=== PATIENT | male | born 1940 | race Caucasian/White ===

== ENCOUNTER → 2024-02-25 | Outpatient (CLI) | payer MEDICARE, OTHER ==
--- NOTE | 2024-02-26 12:21 | MR ---
EXAMINATION TYPE: MR Prostate wo/w con DATE OF EXAM: 02/25/2024 10:34 AM COMPARISON: None. CLINICAL INDICATION:Male, 83 years old with history of R97.20 ELEVATED PSA; Elevated PSA. TECHNIQUE: Multi-planar, multi-sequence imaging of the pelvis is performed prior to and following the uncomplicated administration of bolus intravenous gadolinium. CONTRAST: 8.5 Gadavist Interpretive Criteria: PI-RADS v2.1 SERUM PSA: 6.0 on 12/10/2023. SURGICAL PATHOLOGY: No data available. FINDINGS: Prostatic dimensions: 6.4 x 7.4 x 5.9 cm. Ellipsoid Volume:146.31 (PSA density=0.04 ng/mL/mL) CENTRAL GLAND (Central and Transition Zones/CZ+TZ): Multiple bilateral, heterogenous appearing hypertrophic stromal nodules, without suspicious lesion. M edian lobe hypertrophy with protrusion into the base of the bladder. (PI-RADS 2) PERIPHERAL ZONE (PZ): Atrophy of the peripheral zone secondary to central gland hypertrophy. No evidence of masslike abnorm ality, or localized perfusional hypervascularity, to further suggest a focus of clinically significan t prostate cancer. (PI-RADS 2) SEMINAL VESICLES (SV): Symmetric and unremarkable. PERIPROSTATIC TISSUES: Unremarkable. LYMPH NODES: No enlarged pelvic lymph node. REMAINING PELVIS: Bladder wall is within normal limits given distention. No abnormal free or organized intrapelvic fluid collection. No pathologic bowel dilation or mural thickening. Colonic diverticula are present. No hernia visualized Left gluteus kilo intramuscular lipoma measuring up to 57 x 29 mm OSSEOUS STRUCTURES: No suspicious osseous abnormality. IMPRESSION: 1. No specific features for high-risk prostate cancer. Maximum PI-RADS score: 2. 2. Substantial BPH, estimated gland volume 146.31 mL. 3. No suspicious osseous lesion. No lymphadenopathy. No evidence of prostate adenocarcinoma involving the periprostatic tissues. 4. Left gluteus kilo intramuscular lipoma measuring up to 57 x 29 mm
== END | disposition home or self-care (01) ==
LOC: RADMRIMAIN 01-30 17:58
PROVIDERS: ATTEND Urology
DX: N40.0 Benign prostatic hyperplasia without lower urinary tract symptoms (principal); D17.24 Benign lipomatous neoplasm of skin and subcutaneous tissue of left leg; R97.20 Elevated prostate specific antigen [PSA]
CPT/HCPCS: 72197; A9585

== ENCOUNTER 2025-01-01 10:11 | Day surgery (SDC) | payer MEDICARE, OTHER, BC ==
[~2025-01-01 10:11] MED LIST: ALPRAZolam 0.25 MG TAB PO PRN; ALPRAZolam 0.5 MG TAB PO PRN; MIDAZOLAM 2 MG/2 ML VIAL IV PRN; NITROGLYCERIN SL TABS 0.4 MG TAB SUBLINGUAL PRN
[2025-01-01] MEDS: ASPIRIN 325 MG TAB PO STA (11:25)
[2025-01-01 11:26] LABS: Glucose,Whole Blood 105 mg/dL (70-110)
[2025-01-01] MEDS: IV FLUID CONTINUATION 1,000 ML IV ONE ×2 (11:26→16:18)
[2025-01-01] MEDS: fentaNYL (PF) 50 MCG/ML 2 ML AMP IVP ONE (12:30)
[2025-01-01] MEDS: MIDAZOLAM 2 MG/2 ML VIAL IVP ONE (12:30)
[2025-01-01] MEDS: LIDOCAINE 1% INJ 10MG/ML (20 ML MDV) SQ ONE (13:00)
[2025-01-01] MEDS: HEPARIN SODIUM,PORCINE (1 ML) 2,500 UNIT in SODIUM CHLORIDE 0.9% 250 ML IRRIGATION PRN (13:02)
[2025-01-01] MEDS: HEPARIN SODIUM,PORCINE 10,000 UNIT in SODIUM CHLORIDE 0.9% 1,000 ML IRRIGATION PRN (13:02)
[2025-01-01] MEDS: VERAPAMIL SYRINGE (5 MG/10 ML) INTRAARTER ONE (13:03)
[2025-01-01] MEDS: fentaNYL (PF) 50 MCG/ML 5 ML AMP IVP PRN (13:05)
[2025-01-01] MEDS: HEPARIN SODIUM 1,000 UN/ML (10ML VL) IVP ONE (13:14)
[2025-01-01] MEDS: IOPAMIDOL-370 100ML BTL INJ ONE ×2 (13:29→13:51)
[2025-01-01] MEDS: TICAGRELOR 90 MG TAB PO ONE (13:38)
[2025-01-01] MEDS ORDERED: NITROGLYCERIN SL TABS 0.4 MG TAB SUBLINGUAL PRN (14:03)
[2025-01-01] MEDS ORDERED: RX INFO: IV CONTRAST WAS GIVEN 1 EACH MISC MISCELLANE PRN (14:03)
[2025-01-01] MEDS ORDERED: ATROPINE SULFATE 0.1 MG/ML 10ML SYRINGE IV PRN (14:03)
[2025-01-01] MEDS ORDERED: ZOLPIDEM 5 MG TAB PO PRN (14:03)
[2025-01-01] MEDS ORDERED: MAG HYDROX/AL HYDROX/SIMETH 30 ML CUP PO PRN (14:03)
--- NOTE | 2025-01-01 14:05 | P.PCN ---
Date of Procedure: 01/01/25 Operative Findings: TRANSESOPHAGEAL ECHOCARDIOGRAM APPLICATIONS SALES REPRESENTATIVE: BIANKA CHRISTINE MD, RPVI INDICATION: Aortic stenosis SEDATION: Conscious sedation COMPLICATION: None LEVEL OF SEDATION Moderate with sedation length of 20 minutes PROCEDURE DESCRIPTION: After obtaining an informed consent, the patient was brought to transesophageal echocardiogram room. Pulse oximetry and heart monitors were attached to the patient. The patient throat was sprayed using lidocaine. The patient was turned into left lateral position. After that a bite guard was placed. After an appropriate conscious sedation was initiated, the transesophageal echocardiogram was advanced through a bite guard into the mid esophagus. A 2-D echocardiogram images, color Doppler images, continuous wave images, pulse-wave images, of various cardiac structure were performed. After that the transesophageal echocardiogram probe was advanced into the stomach and fixed to obtain transgastric view was. The probe was brought into the mid esophagus. Inter-atrial septum was interrogated using 2D images, color Doppler images, and then contrast study. After that transesophageal echocardiogram was withdrawn out and upon withdrawing the descending thoracic aorta all the way up to the arch was evaluated. CONCLUSION: 1. Normal biventricular systolic function 2. Aortic sclerosis with severe stenosis and mean gradient of 59 mmHg and peak systolic velocity exceeding 4 m/s 3. Mild to moderate mitral regurgitation 4. No pericardial effusion 5. Intact left atrial appendage 6. Intact interatrial septum
--- NOTE | 2025-01-01 14:11 | P.PCN ---
Date of Procedure: 01/01/25 Operative Findings: CARDIAC CATHETERIZATION AND PERCUTANEOUS CORONARY INTERVENTION PERFORMING PHYSICIAN: Deon Guerra MD, [facility] PROCEDURE PERFORMED: 1. Selective right and left coronary angiogram and left heart catheterization and right heart catheterization 2. Successful stenting of proximal LAD using 3.5 x 23 mm Xience PAULA with an excellent angiographic results 3. Adjunctive use of IVUS and IFR 4. Ultrasound-guided access of the right radial artery and ultrasound-guided access of the right common femoral vein INDICATION: Aortic stenosis COMPLICATION: None APPROACH: Right radial artery and right common femoral vein LEVEL OF SEDATION: Moderate with the sedation time off 67 minutes PROCEDURE DESCRIPTION: After obtaining informed consent the patient was brought to the cardiac [facility] with right radial artery was cannulated using micropuncture technique under ultrasound guidance a micropuncture wire passed easily and every 6 Irish 11 cm sheath at the right radial artery and give the patient 2 mg of verapamil intra- arterial and 5000's of heparin intravenous. But before that the right common femoral vein was cannulated using micropuncture technique under ultrasound guidance a micropuncture wire passed easily and placed a 6 Irish 11 cm sheath at the right common femoral vein. Right heart catheterization was performed using [place] catheter. Selective right and left coronary angiogram performed using JR4 and JL 3.5 catheter and left heart catheterization was performed using JR4 with a straight wire. The procedure was completed with no complication. After that I decided to do an IFR of the LAD with after zeroing the Dobler wire and equalizing between the Dobler and guiding catheter the left main was engaged and subsequently the IFR wire was advanced to the LAD with IFR came in at 0.74. Also I did an IFR of the left main which came to be at 0.89. I did IVUS of the LAD which showed a diameter around 3 to 3.5 mm. I predilated the LAD using 3 mm NC balloon before I deployed 3.5 x 23 mm stent which was postdilated using 4 mm NC balloon with final angiogram showing excellent angiographic results and the procedure was completed with no complication SELECTIVE CORONARY ANGIOGRAM: The right coronary artery: Large caliber vessel and a dominant vessel with no evidence of high-grade stenosis with only mild to moderate disease Left main: Has mild disease only The left circumflex: Large-caliber vessel nondominant vessel with no evidence of high-grade stenosis The left anterior descending artery: Has intermediate disease involving the proximal portion documented to be flow- limiting by Doppler wire. HEMODYNAMICS: The LVEDP was 15 mmHg Pulmonary capillary wedge pressure was 15 mmHg PA pressures were as follows systolic 56 and diastolic of 22 and mean of 35 mmHg RV pressures were as follows systolic of 62 and end-diastolic of 8 mmHg RA pressure was 6 mmHg Cardiac output was 4.15 L/min with a cardiac index of 2.04 L/min/m The aortic valve area was 0.43 cm and mean gradient was 65 mmHg CONCLUSION: 1. Severe disease involving the proximal LAD with I did perform PCI of the LAD as described above 2. Severe aortic stenosis by gradient as well as by area POSTPROCEDURE MANAGEMENT: 1. Dual antiplatelet therapy using aspirin and Brilinta for 6-12 month 2. Aggressive cholesterol control 3. Follow-up with the patient
[2025-01-01] MEDS: ATORVASTATIN 80 MG TAB PO STA (17:24)
[2025-01-01] MEDS: EMPTY BAG 1 BAG with SODIUM CHLORIDE 0.9% 1,000 ML IV ONE (17:24)
[2025-01-01] MEDS: SODIUM CHLORIDE 0.9% 1,000 ML in EMPTY BAG 1 BAG IV SCH (18:10)
[2025-01-01 20:27] LABS: Glucose,Whole Blood 181 mg/dL (70-110)
[2025-01-01] MEDS: BENZOCAINE SPRAY 1 EACH MM SCH (22:02)
[2025-01-01] MEDS: TICAGRELOR 90 MG TAB PO SCH (22:03)
[2025-01-01] MEDS: traZODone HCL 100 MG TAB PO SCH (22:04)
[2025-01-02 04:17] VITALS: RESP 17
[2025-01-02 06:21] LABS: Glucose,Whole Blood 113 mg/dL (70-110)
[2025-01-02] MEDS: INSULIN GLARGINE (LANTUS) 100 UNIT/ML SYR SQ SCH (06:23)
[2025-01-02 07:28] LABS: African American GFR (CKD) 70 (>60 ml/min/1.73 sqM); Non-African American GFR(CKD) 61 (>60 ml/min/1.73 sqM)
[2025-01-02 07:31] VITALS: BP 105/65; PULSE 75; TEMP 97.5
--- NOTE | 2025-01-02 08:16 | P.DS ---
Providers Attending physician: Deon Guerra Consults: 01/01/25 14:03 Consult Physician Routine Consulting Provider: [facility] Consult Reason/Comments: Post Interventional Patient Do you want consulting provider notified?: Already Contacted Primary care physician: Hardeep Lui MD Hospital Course: The patient is an 84-year-old gentleman who underwent yesterday a MICHELLE and heart catheterization. The MICHELLE revealed severe and the heart catheterization also showed severe . The mean gradient across aortic valve was exceeding 50 mmHg. Also the heart catheterization revealed severe disease involving the LAD. He underwent PCI of the LAD He was seen and evaluated this morning with he has bruises at the right groin from the venous sheath in the right common femoral vein. Otherwise no discrete hematomas noted. The patient will be discharged home on dual antiplatelet therapy including aspirin and Brilinta he is intolerant to statin he will be on Zetia The patient will be seen in the office in a week to undergo further evaluation for TAVR. Plan - Discharge Summary Discharge Rx Participant: No New Discharge Prescriptions: New Ticagrelor [Brilinta] 90 mg PO BID #180 tab Continue Insulin Glargine,Hum.rec.anlog [Basaglar Kwikpen U-100] 25 unit SQ QAM Cyanocobalamin (Vitamin B-12) [Vitamin B-12] 1,000 mcg PO QAM Cholecalciferol [Vitamin D3 (25 Mcg = 1000 Iu)] 100 mcg PO QAM traZODone HCL 100 mg PO HS Semaglutide [Ozempic] 1 mg SQ SA Ezetimibe/Simvastatin [Ezetimibe/Simvastatin 10-20 mg] 1 each PO QAM Aspirin [Adult Low Dose Aspirin EC] 81 mg PO QAM Discharge Medication List Aspirin [Adult Low Dose Aspirin EC] 81 mg PO QAM 12/31/24 [History] Cholecalciferol [Vitamin D3 (25 Mcg = 1000 Iu)] 100 mcg PO QAM 12/31/24 [History] Cyanocobalamin (Vitamin B-12) [Vitamin B-12] 1,000 mcg PO QAM 12/31/24 [History] Ezetimibe/Simvastatin [Ezetimibe/Simvastatin 10-20 mg] 1 each PO QAM 12/31/24 [History] Insulin Glargine,Hum.rec.anlog [Basaglar Kwikpen U-100] 25 unit SQ QAM 12/31/24 [History] Semaglutide [Ozempic] 1 mg SQ SA 12/31/24 [History] traZODone HCL 100 mg PO HS 12/31/24 [History] Ticagrelor [Brilinta] 90 mg PO BID #180 tab 01/02/25 [Rx] Follow up Appointment(s)/Referral(s): Deon Guerra MD [STAFF PHYSICIAN] - 1 Week (OFFICE WILL CALL WITH APPOINTMENT DATE AND TIME. either here or in maljamar)
[2025-01-02 08:45] LABS: Basophils % (A) 0 %; Eosinophils # (A) 0.3 k/uL (0-0.7); Eosinophils % (A) 3 %; HCT 38.8 % (39.0-53.0); HGB 12.4 gm/dL (13.0-17.5); Lymphocytes # (A) 1.6 k/uL (1.0-4.8); Lymphocytes % (A) 15 %; MCH 29.4 pg (25.0-35.0); MCHC 31.9 g/dL (31.0-37.0); MCV 92.1 fL (80.0-100.0); Mean Platelet Volume 7.5; Monocytes # (A) 0.7 k/uL (0-1.0); Monocytes % (A) 7 %; Neutrophils # (A) 7.9 k/uL (1.3-7.7); Neutrophils % (A) 74 %; Platelet Count 205 k/uL (150-450); RBC 4.22 m/uL (4.30-5.90); RDW 14.5 % (11.5-15.5); WBC 10.7 k/uL (3.8-10.6)
[2025-01-02 08:53] LABS: INR 1.1 (<1.2); Partial Thromboplastin Time 24.2 sec (22.0-30.0); Prothrombin Time 11.5 sec (10.0-12.5)
[2025-01-02 08:56] LABS: ALT 19 U/L (4-49); AST 27 U/L (17-59); African American GFR (CKD) 70 (>60 ml/min/1.73 sqM); Albumin 3.5 g/dL (3.5-5.0); Albumin/Globulin Ratio 1.5; Alkaline Phosphatase 58 U/L (38-126); Anion Gap 6 mmol/L; Blood Urea Nitrogen 18 mg/dL (9-20); Calcium 8.4 mg/dL (8.4-10.2); Carbon Dioxide 24 mmol/L (22-30); Chloride 107 mmol/L (98-107); Globulin 2.4 g/dL; Glucose 125 mg/dL (74-99); Magnesium 1.7 mg/dL (1.6-2.3); Non-African American GFR(CKD) 61 (>60 ml/min/1.73 sqM); Potassium 4.6 mmol/L (3.5-5.1); Sodium 137 mmol/L (137-145); Total Bilirubin 0.8 mg/dL (0.2-1.3); Total Protein 5.9 g/dL (6.3-8.2)
[2025-01-02] MEDS ORDERED: [UNRECOGNIZED DRUG - OTHER] PO SCH (09:00)
[2025-01-02] MEDS ORDERED: EZETIMIBE PO SCH (09:00)
[2025-01-02] MEDS ORDERED: SIMVASTATIN PO SCH (09:00)
[2025-01-02 09:03] LABS: NT-Pro-B-Type Natriuretic Pept 652 pg/mL
--- NOTE | 2025-01-02 09:09 | US ---
EXAMINATION TYPE: US carotid duplex BILAT DATE OF EXAM: 01/02/2025 COMPARISON: NONE CLINICAL INDICATION: Male, 84 years old with history of preop cardiac surgery; pre op Additional History: .... TECHNIQUE: Grayscale, color Doppler and spectral Doppler evaluation of the bilateral carotid systems and vertebral arteries. Indirect Doppler criteria was utilized. FINDINGS: EXAM MEASUREMENTS: RIGHT: Peak Systolic Velocity (PSV) cm/sec ----- Right CCA: 97.9 ----- Right ICA: 174 ----- Right ECA: 76.2 ICA/CCA ratio: 1.8 RIGHT: End Diastole cm/sec ----- Right CCA: 11.8 ----- Right ICA: 45.3 ----- Right ECA: 4.1 LEFT: Peak Systolic Velocity (PSV) cm/sec ----- Left CCA: 102 ----- Left ICA: 105 ----- Left ECA: 117 ICA/CCA ratio: 1.0 LEFT: End Diastole cm/sec ----- Left CCA: 20.5 ----- Left ICA: 28.7 ----- Left ECA: 6.5 VERTEBRALS (direction of flow): Right Vertebral: Antegrade Left Vertebral: Antegrade Rhythm: Normal RESEARCH PHYSIOLOGIST NOTES: No significant stenosis seen Color Doppler imaging shows patency with blood flow throughout the carotid artery. Spectral waveforms are within normal limits. IMPRESSION: No evidence for hemodynamically significant stenosis. Criteria for Assigning % of Stenosis / Diameter reduction (Estimation based on the indirect measurements of the internal carotid artery velocities (ICA PSV). 1. Normal (no stenosis)=ICA PSV < 125 cm/s: ratio < 2.0: ICA EDV<40 cm/s. 2. Less than 50% stenosis=ICA PSV < 125 cm/s: ratio < 2.0: ICA EDV<40 cm/s. 3. 50 to 69% stenosis=ICA PSV of 125 to 230 cm/s: ration 2.0 ? 4.0: ICA EDV 40-100 cm/s. 4. Greater than 70% stenosis to near occlusion= ICA PSV > 230 cm/s: ratio > 4.0: ICA EDV > 100 cm/s. 5. Near occlusion= ICA PSV velocities may be low or undetectable: variable ratio and ICA EDV. 6. Total occlusion=unable to detect flow. [facility], , 01/02/2025 9:06 AM
[2025-01-02] MEDS: ASPIRIN 81 MG PO SCH (10:32)
[2025-01-02] MEDS: CHOLECALCIFEROL 25 MCG (1000 IU) TABLET PO SCH (10:32)
[2025-01-02] MEDS: CYANOCOBALAMIN 500 MCG TAB PO SCH (10:32)
[2025-01-02] MEDS: EZETIMIBE 10 MG TAB PO SCH (10:32)
[2025-01-02] MEDS: ATORVASTATIN 10 MG TAB PO SCH (10:32)
[2025-01-02 11:04] VITALS: BMI 26.3
[2025-01-02 14:28] LABS: Appearance,Urine Clear (Clear); Bilirubin,Urine Negative (Negative); Blood,Urine Negative (Negative); Color,Urine Light Yellow; Glucose,Urine (UA) Negative (Negative); Ketones,Urine Negative (Negative); Leukocyte Esterase,Urine Negative (Negative); Nitrite,Urine Negative (Negative); Protein,Urine Negative (Negative); Specific Gravity,Urine 1.033 (1.001-1.035); Urobilinogen,Urine <2.0 mg/dL (<2.0)
[2025-01-02 16:03] LABS: Chol/HDL Ratio 3.02 Ratio; LDL Cholesterol,Calculated 61.7 mg/dL (0.0-131.0)
[2025-01-02 17:15] LABS: Hepatitis A Antibody IgM Nonreactive (Nonreactive); Hepatitis B Core IgM Nonreactive (Nonreactive); Hepatitis B Surface Antigen Nonreactive (Nonreactive); Hepatitis C IgG Antibody Nonreactive (Nonreactive)
[2025-01-05] MEDS ORDERED: NON FORMULARY DRUG (Semaglutide [Ozempic] 1 MG/0.75 ML Each) SQ SCH (09:00)
== END 2025-01-02 11:29 | disposition home or self-care (01) ==
LOC: CATHCVL 10:11 → 4SSUR 14:37 → 6NMEDSUR 14:50 → CATHCVL 01-02 11:29
PROVIDERS: ATTEND Internal Medicine Interventional Cardiology
DX: I08.0 Rheumatic disorders of both mitral and aortic valves (principal); I70.0 Atherosclerosis of aorta; I10 Essential (primary) hypertension; E78.5 Hyperlipidemia, unspecified; I65.22 Occlusion and stenosis of left carotid artery; Z79.02 Long term (current) use of antithrombotics/antiplatelets; Z79.82 Long term (current) use of aspirin; Z79.899 Other long term (current) drug therapy; Z95.5 Presence of coronary angioplasty implant and graft
CPT/HCPCS: 99152; 99153; 93312; 93320; 93325; 92978; 93460; 93799; 83880; 80061; 80053; 80074; 84443; 82565; 83735; 85025; 85610; 85730; 81003; 87070; 83036; 93880; C9600; J2250; J1644 ×3; J2003; J3010 ×2; Q9967

== ENCOUNTER 2025-01-15 06:30 | Outpatient (CLI) | payer MEDICARE, OTHER, BC ==
[2025-01-15 07:41] VITALS: BP 136/67; PULSE 84; RESP 16; TEMP 97.8
--- NOTE | 2025-01-15 13:13 | CT ---
EXAMINATION TYPE: CT TAVR Planning DATE OF EXAM: 01/15/2025 COMPARISON: Ultrasound 01/02/2025. CLINICAL INDICATION: Male, 84 years old with history of I35.1 NONRHEUMATIC AORTIC (VALVE) INSUFFICIEN CY; NONHEUMATIC AORTIC (VALVE) INSUFFICIENCY TECHNIQUE: CT angiogram scan of the Neck, chest, abdomen and pelvis is performed with IV contrast; Helical imagi ng obtained through the chest, abdomen and pelvis during arterial phase dynamic administration of rad iographic contrast intravenously. MIP imaging performed on a [employer] work station and submitted for r eview. CONTRAST: 150 ML mL of Isovue 370. CT DLP: 23250.0 mGycm, Automated exposure control for dose reduction was used. CT CTDI: mGy FINDINGS: See report from [employer] regarding preprocedural planning HEART AND PERICARDIUM: Heart is normal in size. There is no pericardial effusion. Severe coronary art karl calcifications present. Mitral annular calcification is present. Stent thought to be present in the left anterior descending coronary artery. AV Calcification Severity: Moderate/Severe ARTERIAL VASCULATURE: The aortic arch and thoracic aorta demonstrate a normal course and caliber. The pulmonary outflow tra ct appears within normal limits for size. The thoracic aorta is normal in course and caliber. There is no evidence of aortic dissection, aneurysm or acute aortic injury. Great arch vessels patent and n ormal in course and caliber. Infrarenal abdominal aorta demonstrates mural thrombus with at least 50 % stenosis of the aorta. Moderate to severe calcified and noncalcified plaque along the common iliac and external iliac arteries. PULMONARY ARTERIAL VASCULATURE: Normal caliber., No evidence for central filling defect. NECK AND THYROID: No significant findings. The carotid bifurcations are patent. The intracranial vasc ulature is without evidence for high-grade stenosis or aneurysm dilation. Intracranial atherosclerosi s of the internal carotid arteries. The carotid bifurcations demonstrate atherosclerosis. There is hi gh-grade stenosis of the right carotid bifurcation. Greater than 50-70% stenosis. CHEST: LUNGS: Moderate to severe centrilobular emphysema changes. Lingula calcified granuloma. Left lower lo be 6 mm nodule series 15 image 426. LARGE AIRWAYS: Central airways are patent. PLEURAL: No pleural effusion or thickening. No pneumothorax. MEDIASTINUM AND MO: No mediastinal or hilar lymphadenopathy or soft tissue mass. SOFT TISSUES/LYMPH NODES: Unremarkable.Normal. MUSCULOSKELETAL: No acute osseous abnormalities ABDOMEN/PELVIS: Please note arterial phase of the imaging limits detailed evaluation of the solid abdominal organs. ABDOMEN LIVER: Unremarkable GALLBLADDER AND BILE DUCTS: Layering increased densities within the lumen consistent with gallstones are present. PANCREAS: Unremarkable. SPLEEN: Unremarkable. ADRENAL GLANDS: Unremarkable. KIDNEYS AND URETERS: Echogenic kidneys bilaterally. No hydronephrosis. No evidence of hydronephrosis or renal calculus. The ureters are unremarkable. PELVIS BLADDER: Unremarkable REPRODUCTIVE: Prostate is enlarged in size measuring 6.2 cm in transverse dimension. ABDOMEN & PELVIS STOMACH AND BOWEL: No evidence of bowel obstruction. Scattered colonic diverticulosis. Focal wall thi ckening of the splenic flexure/transverse colon measuring up to 9 mm in dimension and extends approxi mately 4.0 cm in length. PERITONEUM/RETROPERITONEUM: No evidence of pneumoperitoneum or free fluid. VASCULATURE: No evidence of aortic aneurysm. MUSCULOSKELETAL: No acute osseous abnormalities. Moderate disc degeneration changes are present throu ghout the thoracolumbar spine. Left gluteus kilo intramuscular lipoma measuring up to 4.7 cm. LYMPH NODES: No gross evidence for lymphadenopathy. SOFT TISSUE/ABDOMINAL WALL: Unremarkable Other Lines/Tubes/Devices/Hardware: None IMPRESSION: 1. Moderate/Severe calcifications of the aortic valve. 2. Left upper quadrant spine flexion/transverse colon eccentric wall thickening concerning for malig jerad. Colonoscopy recommended. No adjacent lymphadenopathy definitively visualized at this time. 3. See report from [employer] regarding preprocedural planning 4. 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 5. Left lower lobe 6 mm pulmonary nodule. Short term follow-up in 6-12 months recommended to ensure stability. 6. 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 No hemodynam ically significant stenosis in the left carotid bifurcation. 7. Marked severe emphysema. 8. Moderate severe coronary artery cusp patient's with stent but to be present. 9. Cholelithiasis. 10. Bilateral atrophic kidneys. 11. Prostatomegaly, correlation PSA. 12. Left gluteus kilo intramuscular lipoma measuring up to 4.7 cm. 13. Colonic diverticulosis. [facility], , 01/15/2025 1:11 PM
== END 2025-01-15 13:21 | disposition home or self-care (01) ==
LOC: RADCTMAIN 06:30
PROVIDERS: ATTEND Thoracic Surgery (Cardiothoracic Vascular Surgery)
DX: K80.20 Calculus of gallbladder without cholecystitis without obstruction (principal); N26.1 Atrophy of kidney (terminal); N40.0 Benign prostatic hyperplasia without lower urinary tract symptoms; K57.30 Diverticulosis of large intestine without perforation or abscess without bleeding; I65.21 Occlusion and stenosis of right carotid artery; I35.0 Nonrheumatic aortic (valve) stenosis; I70.0 Atherosclerosis of aorta; R91.1 Solitary pulmonary nodule; J43.9 Emphysema, unspecified; D17.9 Benign lipomatous neoplasm, unspecified; Z95.5 Presence of coronary angioplasty implant and graft
CPT/HCPCS: 94150; 71275; 74174; Q9967